=== PATIENT | female | born 1960 | race African-American/Black ===

== ENCOUNTER 2018-07-30 07:49 | Day surgery (SDC) | payer OTHER ==
[~2018-07-30] VITALS: Ht 170.2 cm; Wt 81.6 kg
[2018-07-30] MEDS ORDERED: LIDOCAINE 2% 100 MG/5 ML UJET TP ONE ×2 (12:44→12:46)
[2018-07-30] MEDS ORDERED: KETOROLAC 60 MG/2 ML VIAL IM ONE (12:44)
== END 2018-07-30 14:34 | disposition home or self-care (01) ==
LOC: MDS 07:49 → MMU 07:49 → MDS 14:34
PROVIDERS: ATTEND Internal Medicine Gastroenterology
DX: Z12.11 Encounter for screening for malignant neoplasm of colon (principal); D17.5 Benign lipomatous neoplasm of intra-abdominal organs; K63.5 Polyp of colon; I10 Essential (primary) hypertension; E78.00 Pure hypercholesterolemia, unspecified; F32.9 Major depressive disorder, single episode, unspecified; F41.9 Anxiety disorder, unspecified; Z98.890 Other specified postprocedural states; Z90.710 Acquired absence of both cervix and uterus; Z79.899 Other long term (current) drug therapy
CPT/HCPCS: 45385; J1885

== ENCOUNTER 2022-11-15 09:45 | Emergency (ER) | payer OTHER ==
[~2022-11-15] VITALS: Ht 165.1 cm; Wt 99.8 kg
[2022-11-15 10:29] VITALS: BP 215/92
[2022-11-15] MEDS ORDERED: CEPH-588 PO (12:24)
[2022-11-15] MEDS ORDERED: ATEN25TA2 PO (12:24)
[2022-11-15] MEDS ORDERED: BACI-416 TP (12:24)
[2022-11-15] MEDS ORDERED: hydroCHLOROthiazide 25 MG TAB PO ONE (12:25)
[2022-11-15 12:56] VITALS: BP 210/80
--- NOTE | 2022-11-15 13:05 | NUR ---
SPOKE TO GABRIEL AND EMANUEL HERNANDEZ, PER GABRIEL OK TO DC, PT NO OTHER COMPLAINTS, DENIES ANY BLURRING OF VISION, SOB, ABD PAIN, GRAVES Addendum: 11/15/22 at 1305 by [email or web address] BP 210/80
--- NOTE | 2022-11-15 13:05 | NUR ---
Patient discharged with v/s stable. Written and verbal after care instructions ABOUT CELLULITIS given and explained. Patient alert, oriented and verbalized understanding of instructions. Ambulatory with steady gait. All questions addressed prior to discharge. ID band removed. Patient advised to follow up with PMD. Rx of ATENOLOL, CEPHALEXIN AND BACITRACIN given. Patient educated on indication of medication including possible reaction and side effects. Opportunity to ask questions provided and answered.
== END 2022-11-15 13:05 | disposition home or self-care (01) ==
LOC: MED 09:45
DX: L03.311 Cellulitis of abdominal wall (principal); E66.9 Obesity, unspecified; I10 Essential (primary) hypertension; Z68.1 Body mass index [BMI] 19.9 or less, adult; Z79.899 Other long term (current) drug therapy
CPT/HCPCS: 99283